=== PATIENT | male | born 1995 | race Hispanic/Latino ===

== ENCOUNTER 2021-06-05 07:40 | Day surgery (SDC) | payer SELFPAY ==
[2021-06-02 11:51] LABS: HEMATOCRIT 47.2 % (42-54); MEAN CORPUSCULAR HEMOGLOBIN 29.9 pg (27.0-33.0); MEAN CORPUSCULAR HGB CONC 32.8 g/dL (32.0-36.0); MEAN CORPUSCULAR VOLUME 90.9 fL (79-99); PLATELET COUNT (AUTO) 243 K/uL (130-400); RED BLOOD CELL COUNT(AUTO) 5.19 MIL/uL (4.50-6.20); RED CELL DISTRIBUTION WIDTH 13.7 % (11.0-15.5); WHITE BLOOD COUNT (AUTO) 7.8 K/uL (4.8-10.8)
[2021-06-02 12:04] LABS: CREATININE 0.8 mg/dL (0.5-1.5); POTASSIUM 4.9 mmol/L (3.5-5.1)
[2021-06-02 12:52] LABS: BASOPHILS % (MANUAL) 2 % (0-2); LYMPHOCYTES % (MANUAL) 36 % (22-44); MONOCYTES % (MANUAL) 9 % (2-9); SEGMENTED NEUTROPHILS % 53 % (40-70)
[2021-06-02 12:53] LABS: PLATELET MORPHOLOGY COMMENT ADEQUATE
[2021-06-04 09:43] VITALS: BP 109/69
[~2021-06-05] VITALS: Ht 172.7 cm; Wt 63.6 kg
[2021-06-05] VITALS (16 sets, daily range): BP systolic 109–135; BP diastolic 64–75
[~2021-06-05 07:40] MED LIST: 0.9% NACL 500ML IV.SOLN 500 ML IV SCH; CEFAZOLIN SODIUM 1 GM VIAL IVP ONE; CEFAZOLIN SODIUM 1 GM VIAL IVP SCH
[2021-06-05] MEDS ORDERED: 0.9%NACL 1000ML 1,000 ML IV ONE (08:14)
[2021-06-05] MEDS ORDERED: SUCCINYLCHOLINE CHLORIDE 20 MG/ML 10 ML VIAL ONE (09:33)
[2021-06-05] MEDS ORDERED: LIDOCAINE PF 100MG/5ML (2%) SYRINGE 5ML ONE (09:33)
[2021-06-05] MEDS ORDERED: MIDAZOLAM HCL 1 MG/ML 2ML VIAL ONE (09:33)
[2021-06-05] MEDS ORDERED: FENTANYL CITRATE PF 50 MCG/1 ML 2ML VIAL ONE (09:34)
[2021-06-05] MEDS ORDERED: ROCURONIUM 10MG/1ML SYR 10 MG/ML ML ONE (09:34)
[2021-06-05] MEDS ORDERED: PROPOFOL 10 MG/ML 20ML VIAL IV ONE (09:34)
[2021-06-05] MEDS ORDERED: BUPIVACAINE/PF 0.5% 30ML VIAL INJ ONE (10:10)
[2021-06-05] MEDS ORDERED: ONDANSETRON 4MG INJ ONE (10:16)
[2021-06-05] MEDS ORDERED: BUPIVACAINE/PF 0.5% 30ML VIAL ONE (10:18)
== END 2021-06-05 12:25 | disposition home or self-care (01) ==
LOC: DAH 07:40
PROVIDERS: ATTEND Surgery
DX: D17.0 Benign lipomatous neoplasm of skin and subcutaneous tissue of head, face and neck (principal); L72.3 Sebaceous cyst; Z98.84 Bariatric surgery status; Z79.01 Long term (current) use of anticoagulants; Z79.899 Other long term (current) drug therapy; Z98.890 Other specified postprocedural states
CPT/HCPCS: 21552; 36415; 43236; 80048; 85025; 87635; 88304; 88341; 88342; A4215; A4221; A4222; A4223; A4452; A4663; C9803; J0330; J0690; J2001; J2250; J2405; J2704; J3010; J3490 ×2; J7030